=== PATIENT | male | born 1970 | race Caucasian/White ===

== ENCOUNTER 2018-06-20 21:02 | Emergency (ER) | payer OTHER ==
[~2018-06-20] VITALS: Ht 177.8 cm; Wt 91.8 kg
[2018-06-20 21:08] VITALS: Ht 177.8 cm; Wt 91.8 kg
[2018-06-20] MEDS ORDERED: ONDANSETRON INJ 2 MG/ML 2 ML VIAL IV STA (21:16)
--- NOTE | 2018-06-20 21:47 | EMERGENCY ROOM VISIT NOTE ---
History Report prepared by Alicia: Deanna Rodriguez Under the Supervision of: Dr. Ras Crain D.O. First contact with patient: 21:12 Chief Complaint: FOOD BOLUS Stated Complaint: FOOD STUCK IN THROAT History of Present Illness The patient is a 48 year old male who presents to the Emergency Room with complaints of a food bolus occurring about a half hour prior to arrival. The patient states that this happened to him about a month ago and states that he has not seen his GI doctor since. The patient reports that last time he had to have a scope to get the bolus removed. He states that he has a narrowing of his esophagus and he states that he has Crohn's Disease. The patient reports some chest discomfort but denies difficulty breathing. Source of History: patient Onset: a half hour prior to arrival Position: throat Quality: other (food bolus ) Associated Symptoms: + chest pain (discomfort), No SOB Review of Systems See HPI for pertinent positives & negatives. A total of 10 systems reviewed and were otherwise negative. Past Medical & Surgical Medical Problems: (1) Crohns disease Family History Patient reports no known family medical history. Social History Smoking Status: Former Smoker Occupation Status: employed Physical Exam Vital Signs Date Time Temp Pulse Resp B/P (MAP) Pulse Ox O2 Delivery O2 Flow Rate FiO2 06/20/18 21:23 Room Air 06/20/18 21:08 37.2 88 16 144/94 98 Room Air Physical Exam CONSTITUTIONAL/VITAL SIGNS: Reviewed / noted above. GENERAL: Non-toxic in appearance. INTEGUMENTARY: Warm, dry, and [place]. HEAD: Normocephalic. EYES: without scleral icterus or trauma. ENT/OROPHARYNX: clear and moist. LYMPHADENOPATHY/NECK: Is supple without lymphadenopathy or meningismus. RESPIRATORY: Lungs clear and equal. CARDIOVASCULAR: Regular rate and rhythm. GI/ABDOMEN: Soft and nontender. No organomegaly or pulsatile mass. No rebound or guarding. Normal bowel sounds. EXTREMITIES: Warm and well perfused. BACK: No CVA tenderness. NEUROLOGICAL: Intact without focal deficits. PSYCHIATRIC: normal affect. MUSCULOSKELETAL: Normally developed with good muscle tone. Medical Decision & Procedures Medications Administered Medications (Trade) Dose Ordered Sig/Valarie Route Start Time Stop Time Status Last Admin Dose Admin Ondansetron HCl (Zofran Inj) 4 mg NOW STAT IV 06/20/18 21:16 06/20/18 21:17 DC 06/20/18 21:30 4 MG ED Course 2112: Previous medical records were reviewed. The patient was evaluated in room A10. A complete history and physical examination was performed. 2115: Ordered Zofran Inj 4 mg IV. 2116: I spoke with Dr. Good who will come to evaluate the patient. Medical Decision the differential was considered includes acute myocardial infarction, acute coronary syndrome, myocarditis, pericarditis, pericardial effusions /tamponade, esophageal perforation, thoracic aortic dissection, pulmonary embolism, pneumonia, pneumothorax, pancreatitis, shingles, acute cholecystitis, perforated abdominal viscus. This is a 48-year-old male who presents to the ED with a chief complaint of esophageal food bolus obstruction. The patient states that he was eating chicken about 30 minutes prior to his arrival here in the emergency department. The patient states that the chicken became stuck in his esophagus. The patient states this occurred a couple of times previously. The last time was about a month and a half. He saw his GI specialist at [facility] in [place]. He states that they had to do an endoscopy to remove the chicken. The patient does report a history of Crohn's disease. He denies any other significant symptoms. Denies any shortness of breath. He denies any fevers or recent illness. He is spitting up his saliva in the ED. His exam is otherwise unremarkable. The patient was treated here with IV Zofran. I spoke with the GI specialist money market clerk. He will see the patient the emergency department for further disposition. Consults Time Called: 2114 Consulting Physician: Dr. Good - GI specialist Returned Call: [address] Good who will come to evaluate the patient. Impression Primary Impression: Esophageal obstruction due to food impaction Scribe Attestation The scribe's documentation has been prepared under my direction and personally reviewed by me in its entirety. I confirm that the note above accurately reflects all work, treatment, procedures, and medical decision making performed by me. Departure Information Dispostion Home / Self-Care Referrals No Doctor, Assigned (PCP) Patient Instructions [facility] Additional Instructions Follow-up instructions as provided by the GI specialist.
[2018-06-20 22:04] VITALS: O2SAT 98
--- NOTE | 2018-06-20 22:04 | Gastrointestinal Consultation ---
Gastrointestinal Consultation Date of Consultation: Jun 20, 2018 Attending Physician: Jay Good Consulting Physician: Ras Crain History of Present Illness Patient is a 48 year old male with Crohn's disease on Rem[employer] and 6MP, presented to the ED with food impaction, had chicken breast at dinner, since then can't swallow his saliva. Denies any chest pain, SOB, abdominal pain or hematemesis. Had similar episode a month ago and told he has a stricture. Past Medical/Surgical History Medical Problems: (1) Esophageal obstruction due to food impaction Status: Acute Past Medical History: As above Past Surgical History: Partial colon resection Family History Patient reports no known family medical history. Social History Smoking Status: Former Smoker Occupation Status: employed Review of Systems Constitutional: No fever, No chills Eyes: No worsening of vision, No eye pain ENT: No unusual epistaxis, No sore throat Respiratory: No cough, No sputum Cardiac: No chest pain, No edema Abdomen: + see HPI Musculoskeletal: No joint pain, No muscle pain Male : No dysuria, No urinary frequency Neuro: No paralysis, No weakness Psych: No anxiety Heme: No abnormal bleeding/bruising Endo: No fatigue Skin: No rash, No itch Physical Exam Date Time Temp Pulse Resp B/P (MAP) Pulse Ox O2 Delivery O2 Flow Rate FiO2 06/20/18 21:23 Room Air 06/20/18 21:08 37.2 88 16 144/94 98 Room Air General Appearance: no apparent distress Eyes: PERRL ENT: pharynx normal Neck: supple, no JVD Respiratory/Chest: lungs clear, normal breath sounds Cardiovascular: regular rate, rhythm Abdomen: normal bowel sounds, non tender, soft Extremities: no pedal edema Neurologic/Psych: alert, oriented x 3 Skin: no jaundice Impression Patient is a 48 year old male with food impaction. Seems to have sign of partial obstruction. Has Crohn's disease and Hx of impaction in the past due to esophageal stricture. Follows at [place]. Plan Emergent EGD today. He was explained the risk, benefit, alternatives and consented.
[2018-06-20] MEDS ORDERED: FENTANYL CITRATE INJ 50 MCG/1 ML 2 ML VIAL ONE (22:19)
[2018-06-20] MEDS ORDERED: PROPOFOL IV EMULSION 10 MG/ML 20 ML VIAL ONE (22:21)
[2018-06-20] MEDS ORDERED: LIDOCAINE HCL 2% 2 ML VIAL (20MG/ML) ONE (22:21)
[2018-06-20] MEDS ORDERED: SUCCINYLCHOLINE 100MG/5ML SYR IV ONE (22:43)
[2018-06-20] MEDS ORDERED: ONDANSETRON INJ 2 MG/ML 2 ML VIAL ONE (22:43)
--- NOTE | 2018-06-20 22:49 | [facility] Post Operative Brief Note ---
Immediate Operative Summary Operative Date Jun 20, 2018. Pre-Operative Diagnosis Food impaction Post-Operative Diagnosis Food impaction Procedure(s) Performed Esophagogastroduodenoscopy, disempaction, stricture dilation Surgeon Dr. Good Chuck Wagon Cook Surgeon(s) None Estimated Blood Loss 0cc Findings Consistent with Post-Op Diagnosis Specimens None Anesthesia Type General
--- NOTE | 2018-06-20 22:52 | GI REPORT ---
Patient Name: Pilo Nelson Procedure Date: 06/20/2018 10:25 PM Date of : 1970 Admit Type: Emergency Department Age: 48 Gender: Male Attending MD: Jay Good MD Procedure: Upper GI endoscopy Providers: Jay Good MD Referring MD: Ras Crain Do Indications: Foreign body in the esophagus Medicines: General Anesthesia Complications: No immediate complications. Estimated Blood Loss: Estimated blood loss: none. Procedure: Pre-Anesthesia Assessment: - Prior to the procedure, a History and Physical was performed, and patient medications and allergies were reviewed. The patient is competent. The risks and benefits of the procedure and the sedation options and risks were discussed with the patient. All questions were answered and informed consent was obtained. Patient identification and proposed procedure were verified by the physician and the nurse in the procedure room. Mental Status Examination: alert and oriented. Airway Examination: normal oropharyngeal airway and neck mobility. Respiratory Examination: clear to auscultation. CV Examination: normal. ASA Grade Assessment: E - Emergency. After reviewing the risks and benefits, the patient was deemed in satisfactory condition to undergo the procedure. The anesthesia plan was to use general anesthesia. Immediately prior to administration of medications, the patient was re-assessed for adequacy to receive sedatives. The heart rate, respiratory rate, oxygen saturations, blood pressure, adequacy of pulmonary ventilation, and response to care were monitored throughout the procedure. The physical status of the patient was re-assessed after the procedure. After obtaining informed consent, the endoscope was passed under direct vision. Throughout the procedure, the patient's blood pressure, pulse, and oxygen saturations were monitored continuously. The Scope was introduced through the mouth, and advanced to the second part of duodenum. The upper GI endoscopy was accomplished without difficulty. The patient tolerated the procedure well. Findings: There is no endoscopic evidence of foreign body or food in the entire esophagus. Likely passed spontaneously. Mucosal changes including ringed esophagus were found in the entire esophagus. A benign-appearing, intrinsic mild stenosis measuring 1 cm (inner diameter) was found in the upper third of the esophagus and was traversed. A TTS dilator was passed through the scope. Dilation with a 15-16.5-18 mm balloon dilator was performed to 15 mm. The dilation site was examined following endoscope reinsertion and showed complete resolution of luminal narrowing with adequate mucosal disruption. A large amount of food (residue) was found in the gastric body. The duodenal bulb and 2nd part of the duodenum were normal. Impression: - Esophageal mucosal changes suggestive of eosinophilic esophagitis. - Benign-appearing esophageal stricture. Dilated. - A large amount of food (residue) in the stomach. - Normal duodenal bulb and 2nd part of the duodenum. - No specimens collected. Recommendation: - Discharge patient to home (with escort). - NPO today. - Clear liquid diet. - Use Prilosec (omeprazole) 40 mg PO BID for 2 months. - Use sucralfate tablets 1 gram PO QID for 2 weeks. - Repeat the upper endoscopy in 2 months for Biopsy of esophagus, patient will follow up with his GI. - Return to referring physician. Jay Good MD 06/20/2018 10:52:00 PM This report has been signed electronically. Note Initiated On: 06/20/2018 10:25 PM Number of Addenda: 0 I attest to the content of the Intraoperative Record and orders documented therein, exceptions below {[id number]}
--- NOTE | 2018-06-20 23:08 | Discharge Instructions ---
Endoscopy Patient Instructions Date / Procedure(s) Performed Jun 20, 2018. EGD Discharge Date / Findings Jun 20, 2018. Esophageal rings suggestive of Eosinophilic esophagitis. Mild stenosis in the upper esophagus, dilated. Food in stomach. Provider Instructions Activity Restrictions - No exercising or heavy lifting for 24 hours. - Do not drink alcohol the day of the procedure. - Do not drive a car or operate machinery until the day after the procedure. - Do not make any important decisions or sign important papers in 24 hours after the procedure. Following Day: - Return to full activity which may include returning to work/school. Diet Start your diet with liquids tomorrow (water and juice) Then eat soft diet (mashed potato) the day after then regular diet the following day. Treatment For Common After Affects For mild abdominal pain, bloating, or excessive gas: - Rest - Eat lightly - Lie on right side Follow-Up Information Follow-up with as scheduled Anesthesia Information What You Should Know You have had a procedure that required some medicine to reduce anxiety and discomfort. This treatment is called moderate sedation. After receiving the treatment, you may be sleepy, but you will be able to breathe on your own. The effects of the treatment may last for several hours. Follow these instructions along with Activity/Diet recommendations noted above: * Do NOT do anything where dizziness or clumsiness would be dangerous. * Rest quietly at home today, then you can be up and about tomorrow. * Have a responsible person stay with you the rest of today. * You may have had an I.V. today. If so, you may take the dressing off later today. Recommendations Call your doctor if: * Trouble breathing * Continuous vomiting for more than 24 hours * Temperature above 101 degrees * Severe abdominal pain or bloating * Pain not relieved by pain medicine ordered * There is increased drainage or redness from any incision * A large amount of rectal bleeding greater than 2-3 tablespoons. (If you had a polyp/s removed or have hemorrhoids, a small amount of blood - from the rectum is to be expected.) * You have any unanswered questions or concerns. IN THE EVENT OF A SERIOUS EMERGENCY, GO TO THE NEAREST EMERGENCY ROOM Your discharge instructions were prepared by provider Jay Good. Patient Instructions Signature Page Pilo Nelson Patient (or Guardian) Signature/Date: I have read and understand the instructions given to me by my caregivers. Caregiver/RN/Doctor Signature/Date: The above-named patient and/or guardian has received patient instructions on this date. + Original Patient Signature Page (only) stays with chart. Please make copy for patient.
[2018-06-20 23:15] VITALS: TEMP 37
[2018-06-20] MEDS ORDERED: CRFL PO (23:17)
[2018-06-20] MEDS ORDERED: OMEP40CA41 PO (23:17)
[2018-06-20 23:28] VITALS: BP 122/77; PULSE 85; O2SAT 95
[2018-06-20] MEDS ORDERED: ATROPINE SULFATE 0.1 MG/ML 5ML SYR IV PRN (23:30)
[2018-06-20] MEDS ORDERED: EpHEDrine SULFATE INJ 50 MG/ML AMP IV PRN (23:30)
--- NOTE | 2018-06-20 23:30 | Anesthesiology Progress Note ---
Anesthesia Post Op Note Date & Time Jun 20, 2018 at 23:30 Vital Signs Pain Intensity: 0 Vital Signs Past 12 Hours Date Time Temp Pulse Resp B/P (MAP) Pulse Ox O2 Delivery O2 Flow Rate FiO2 06/20/18 23:25 86 18 122/77 96 Room Air 06/20/18 23:15 37.0 87 16 123/81 95 Room Air 06/20/18 23:05 88 16 125/81 95 Room Air 06/20/18 23:00 92 14 123/88 98 Room Air 06/20/18 22:50 92 14 123/83 97 Room Air 06/20/18 22:46 36.9 92 16 130/81 98 Room Air 06/20/18 22:04 89 18 151/101 98 06/20/18 21:59 89 18 151/101 98 Room Air 06/20/18 21:23 Room Air 06/20/18 21:08 37.2 88 16 144/94 98 Room Air Notes Mental Status: alert / awake / arousable, participated in evaluation Pt Amnestic to Procedure: Yes Nausea / Vomiting: adequately controlled Pain: adequately controlled Airway Patency, RR, SpO2: stable & adequate BP & HR: stable & adequate Hydration State: stable & adequate Anesthetic Complications: no major complications apparent
[2018-06-20 23:41] VITALS: BP 130/83; PULSE 79; O2SAT 96
== END 2018-06-20 22:04 | disposition home or self-care (01) ==
LOC: C.EDB 21:03 → C.EDA 22:04
DX: K22.2 Esophageal obstruction (principal); K50.90 Crohn's disease, unspecified, without complications; Z87.891 Personal history of nicotine dependence; Z79.899 Other long term (current) drug therapy